=== PATIENT | male | born 1970 | race Two or more races ===

== ENCOUNTER 2017-01-30 15:58 | Emergency (ER) | payer BC ==
[2017-01-30] MEDS ORDERED: DIPHENHYDRAMINE HCL IV 50 MG/ML VIAL IV ONE (16:05)
[2017-01-30] MEDS ORDERED: EPINEPHRINE 1 MG/ML AMPUL IM ONE (16:05)
[2017-01-30] MEDS ORDERED: METHYLPREDNISOLONE PF 125MG/VIAL IVP ONE (16:05)
[2017-01-30] MEDS ORDERED: 0.9 % SODIUM CHLORIDE 1000ML 1,000 ML IV PRN (16:05)
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
== END 2017-01-30 17:43 | disposition home or self-care (01) ==
LOC: ER 15:58
DX: T63.441A Toxic effect of venom of bees, accidental (unintentional), initial encounter (principal); R22.0 Localized swelling, mass and lump, head
CPT/HCPCS: 96372; 96374; 96375; 99284; J0171; J1200; J2930

== ENCOUNTER 2018-05-07 03:13 | Emergency (ER) | payer BC ==
[2018-05-07] MEDS ORDERED: ACETAMINOPHEN 500 MG TABLET PO ONE (03:23)
[2018-05-07] MEDS ORDERED: IBUPROFEN 600 MG TABLET PO ONE (03:23)
--- NOTE | 2018-05-07 03:31 | Emergency Department Record ---
History of Present Illness - General Chief Complaint: Flu Like Symptoms Stated Complaint: COLD Time Seen by Provider: 05/07/18 03:18 Source: Patient Mode of Arrival: Ambulatory Limitations: No limitations - History of Present Illness Initial Comments: 47 yo male presents with cough, and congestion with fevers, chills and aches. The onset was Saturday/Saturday. He did not have a flu shot. He is not a smoker. He has body aches, some headaches, chills. No nausea, vomiting or diarrhea. No rash. He has a prior history of asthma. No significant wheezing. He has exposures to others with similar symptoms. MD Complaint: Cough -: Days(s) (2) Severity: Moderate Quality: Aching Consistency: Constant Improves With: Nothing Worsens With: Coughing Known History Of: Asthma Context: Recent illness, Recent URI Associated Symptoms: Cough, Fever, Nausea/vomiting Treatments Prior to Arrival: None, Other (Motrin 6 hours ago) - Related Data Previous Rx's Medication Instructions Recorded Epinephrine [Epipen] 0.3 mg IM ASDIR PRN #1 syr 01/30/17 Oseltamivir Phosphate 75 mg PO BID #10 capsule 05/07/18 Allergies Allergy/AdvReac Type Severity Reaction Status Date / Time No Known Drug Allergies Allergy Verified 05/07/18 03:26 Review of Systems Constitutional: Reports: Chills, Fever, Malaise, Weakness Eyes: Denies: Eye discharge, Eye pain, Vision change ENT: Reports: Congestion, Throat pain Respiratory: Reports: Cough Cardiovascular: Denies: Chest pain, Palpitations, Syncope Endocrine: Reports: Fatigue Gastrointestinal: Denies: Abdominal pain, Diarrhea, Nausea, Vomiting Genitourinary: Denies: Dysuria Musculoskeletal: Reports: Myalgia Skin: Denies: Bruising, Change in color, Rash Neurological: Reports: Headache Psychiatric: Denies: Anxiety Hematological/Lymphatic: Denies: Easy bleeding, Easy bruising Past Medical History - SOCIAL HISTORY Smoking Status: Never smoker Drug Use: None - RESPIRATORY Hx Respiratory Disorders: No - CARDIOVASCULAR Hx Cardio Disorders: No - NEURO Hx Neuro Disorders: No - GI Hx GI Disorders: No - Hx Genitourinary Disorders: No - ENDOCRINE Hx Endocrine Disorders: No - MUSCULOSKELETAL Hx Musculoskeletal Disorders: Yes Hx Back Injury: Yes - PSYCH Hx Psych Problems: No - HEMATOLOGY/ONCOLOGY Hx Hematology/Oncology Disorders: No Family Medical History Hx Diabetes: Grandparents Physical Exam - General General Appearance: Alert, Oriented x3, Cooperative, No acute distress Limitations: No limitations - Head Head exam: Atraumatic, Normal inspection - Eye Eye exam: Normal appearance. negative: Conjunctival injection - ENT ENT exam: Normal exam, Mucous membranes moist, Normal orophraynx, TM's normal bilaterally Ear exam: Normal external inspection Nasal Exam: Normal inspection Mouth exam: Normal external inspection Throat exam: Normal inspection. negative: Tonsillar erythema, Tonsillomegaly, Tonsillar exudate, R peritonsillar mass, L peritonsillar mass - Neck Neck exam: Normal inspection. negative: Lymphadenopathy, Meningismus, Tenderness - Respiratory Respiratory exam: Normal lung sounds bilaterally. negative: Respiratory distress, Rhonchi, Stridor, Wheezes - Cardiovascular Cardiovascular Exam: Regular rate, Normal rhythm, Normal heart sounds - GI/Abdominal GI/Abdominal exam: Soft. negative: Tenderness - Rectal Rectal exam: Deferred - exam: Deferred - Extremities Extremities exam: Normal inspection - Neurological Neurological exam: Alert, Oriented X3 - Psychiatric Psychiatric exam: Normal affect, Normal mood - Skin Skin exam: Dry, Intact, Normal color, Warm Course Vital Signs 05/07/18 03:19 Temperature 103.1 F H Pulse Rate [ 103 H Pulse Ox Probe] Respiratory 20 Rate Blood Pressure 131/83 [Left Arm] Pulse Ox 95 Disposition Disposition: Discharge Clinical Impression: Influenza A Disposition: Home, Self-Care Condition: (1) Good Instructions: Influenza (ED) Additional Instructions: Rest and stay well hydrated Return if worse, new concerns, short of breath, vomiting Call your doctor for a follow up if not improving Prescriptions: Oseltamivir Phosphate 75 mg PO BID #10 capsule Forms: Patient Portal Access Time of Disposition: 03:47 Quality - Quality Measures Quality Measures: N/A - Blood Pressure Screening Does Patient Have Any of the Following: No Blood Pressure Classification: Pre-Hypertensive BP Reading Systolic Measurement: 131 Diastolic Measurement: 83 Screening for High Blood Pressure: < Pre-Hypertensive BP, F/U Documented > [ G8950] Pre-Hypertensive Follow-up Interventions: Referral to alternative/primary care provider.
[2018-05-07 03:45] LABS: INFLUENZA A POSITIVE (NEGATIVE); INFLUENZA B NEGATIVE (NEGATIVE)
[2018-05-07] MEDS ORDERED: OSTELTAMIVIR 75 MG CAP PO ONE (03:46)
== END 2018-05-07 03:54 | disposition home or self-care (01) ==
LOC: ER 03:13
DX: J10.1 Influenza due to other identified influenza virus with other respiratory manifestations (principal)
CPT/HCPCS: 87400; 99282